=== PATIENT | female | born 1995 | race African-American/Black ===

== ENCOUNTER 2017-03-19 20:17 | Emergency (ER) | payer OTHER ==
[~2017-03-19] VITALS: Ht 160 cm; Wt 69.0 kg
[~2017-03-19 20:17] MED LIST: FLUO-1 PO; RISP.5 PO; Z.0.NO CURRENT MEDS
[2017-03-19 20:19] VITALS: BP 120/58; PULSE 97; RESP 16; TEMP 100; O2SAT 99
--- NOTE | 2017-03-19 20:52 | PD ---
HPI Chief Complaint: GI Complaint Time Seen by Provider: 20:31 Travel History International Travel<30 days: No Contact w/Intl Traveler<30days: No Traveled to known affect area: No History of Present Illness HPI The patient was seen and examined in the presence of the nurse. This patient complains of nausea vomiting diarrhea and diffuse muscle aches and low-grade fever. Duration 2 days. Severity of symptoms is moderate. No alleviating factors. No abdominal pain or shortness of breath. Has 2 close contacts with similar symptoms PFSH Past Medical History Medical History: Denies Significant Hx Diminished Hearing: No Immunizations Current: Yes ?: Unknown LMP: 02/08/17 Past Surgical History Surgical History: No Previous Surgery Social History Alcohol Use: No Tobacco Use: No Substance Use: Yes (MARIJUANA ) Allergies-Medications (Allergen,Severity, Reaction): Coded Allergies: No Known Allergies (Verified , 06/21/12) Reported Meds & Prescriptions Reported Meds & Active Scripts Active No Active Prescriptions or Reported Medications Review of Systems General / Constitutional: Positive: Fever Eyes: No: Visual changes HENT: No: Headaches Cardiovascular: No: Chest Pain or Discomfort Respiratory: No: Shortness of Breath Gastrointestinal: Positive: Nausea, Vomiting, Diarrhea, No: Abdominal Pain Genitourinary: No: Dysuria Musculoskeletal: Positive: Myalgias, No: Pain Skin: No Rash Neurologic: No: Weakness Psychiatric: No: Depression Endocrine: No: Polydipsia Hematologic/Lymphatic: No: Easy Bruising Physical Exam Narrative GENERAL: Well-nourished, well-developed patient in no apparent distress. SKIN: Focused skin assessment reveals no rash and nodules. Skin is Warm and dry. HEAD: Atraumatic. Normocephalic. EYES: Pupils equal and round. No scleral icterus. No injection or drainage. ENT: No nasal bleeding or discharge. Mucous membranes pink and moist. NECK: Trachea midline. No JVD. CARDIOVASCULAR: Regular rate and rhythm. No murmur appreciated. RESPIRATORY: No accessory muscle use. Clear to auscultation. Breath sounds equal bilaterally. GASTROINTESTINAL: Abdomen soft, non-tender, nondistended. Hepatic and splenic margins not palpable. MUSCULOSKELETAL: No obvious deformities. No clubbing. No cyanosis. No edema. NEUROLOGICAL: Awake and alert. No obvious cranial nerve deficits. Motor grossly within normal limits. Normal speech. PSYCHIATRIC: Appropriate mood and affect; insight and judgment normal. Data Data Last Documented VS Vital Signs Date Time Temp Pulse Resp B/P Pulse Ox O2 Delivery O2 Flow Rate FiO2 03/19/17 20:19 100.0 97 16 120/58 99 Room Air Orders Iv Access Insert/Monitor (03/19/17 20:48) Complete Blood Count With Diff (03/19/17 20:48) Basic Metabolic Panel (Bmp) (03/19/17 20:48) Ondansetron Inj (Zofran Inj) (03/19/17 21:00) Sodium Chlor 0.9% 1000 Ml Inj (Ns 1000 M (03/19/17 21:00) Labs Laboratory Tests Test 03/19/17 20:56 White Blood Count 8.3 TH/MM3 Red Blood Count 5.38 MIL/MM3 Hemoglobin 15.0 GM/DL Hematocrit 45.0 % Mean Corpuscular Volume 83.6 FL Mean Corpuscular Hemoglobin 27.9 PG Mean Corpuscular Hemoglobin 33.4 % Concent Red Cell Distribution Width 12.6 % Platelet Count 268 TH/MM3 Mean Platelet Volume 7.8 FL Neutrophils (%) (Auto) 90.5 % Lymphocytes (%) (Auto) 5.8 % Monocytes (%) (Auto) 3.4 % Eosinophils (%) (Auto) 0.0 % Basophils (%) (Auto) 0.3 % Neutrophils # (Auto) 7.5 TH/MM3 Lymphocytes # (Auto) 0.5 TH/MM3 Monocytes # (Auto) 0.3 TH/MM3 Eosinophils # (Auto) 0.0 TH/MM3 Basophils # (Auto) 0.0 TH/MM3 CBC Comment DIFF FINAL Differential Comment Sodium Level 136 MEQ/L Potassium Level 3.9 MEQ/L Chloride Level 104 MEQ/L Carbon Dioxide Level 24.9 MEQ/L Anion Gap 7 MEQ/L Blood Urea Nitrogen 14 MG/DL Creatinine 0.92 MG/DL Estimat Glomerular Filtration 94 ML/MIN Rate Random Glucose 82 MG/DL Calcium Level 9.1 MG/DL [facility] Medical Decision Making Medical Screen Exam Complete: Yes Emergency Medical Condition: Yes Medical Record Reviewed: Yes Differential Diagnosis Flu syndrome, gastroenteritis, colitis Narrative Course I have reviewed the patient's electronic medical record. IV placed I gave her liter normal saline IV and IV Zofran CBC is normal Metabolic profile is normal Patient feels improved on recheck. I wrote her Zofran. I believe she has viral gastroenteritis and will improve soon Diagnosis Primary Impression: Viral gastroenteritis Additional Instructions: The patient was advised to follow up with their physician and return if they worsen. Med/Other Pt SpecificInfo: Prescription(s) given Scripts Ondansetron (Zofran)4 Mg Tab4 Mg PO Q6HR PRN (NAUSEA OR VOMITING) #12 TAB Ref 0 Prov:Antonio Sharp MD 03/19/17 Disposition: 01 DISCHARGE HOME Condition: Stable Antonio Sharp MD Mar 19, 2017 20:52
[2017-03-19] MEDS ORDERED: ONDANSETRON HCL 4 MG/2 ML VIAL IV ONE (21:00)
[2017-03-19] MEDS ORDERED: SODIUM CHLOR 0.9% 1000 ML INJ 1,000 ML IV ONE (21:00)
[2017-03-19 21:24] LABS: AUTOMATED NEUTROPHIL # 7.5 TH/MM3 (1.8-7.7); BASOPHIL % 0.3 % (0.0-2.0); HEMO FLAGS DIFF FINAL; LYMPH % 5.8 % (9.0-44.0); LYMPHOCYTE # 0.5 TH/MM3 (1.0-4.8); MEAN CELL VOLUME 83.6 FL (80.0-100.0); MEAN CORPUSCULAR HEMOGLOBIN 27.9 PG (27.0-34.0); MEAN CORPUSCULAR HGB CONC 33.4 % (32.0-36.0); MONO % 3.4 % (0.0-8.0); NEUT % 90.5 % (16.0-70.0); PLATELET COUNT 268 TH/MM3 (150-450); RED BLOOD COUNT 5.38 MIL/MM3 (4.00-5.30); RED CELL DISTRIBUTION WIDTH 12.6 % (11.6-17.2); WHITE BLOOD COUNT 8.3 TH/MM3 (4.0-11.0)
[2017-03-19 21:37] LABS: BICARBONATE 24.9 MEQ/L (21.0-32.0); POTASSIUM 3.9 MEQ/L (3.5-5.1)
[2017-03-19] MEDS ORDERED: ZOFR4TAB PO (22:13)
== END 2017-03-19 22:29 | disposition home or self-care (01) ==
LOC: NEPD 20:17
DX: A08.4 Viral intestinal infection, unspecified (principal); F12.90 Cannabis use, unspecified, uncomplicated
CPT/HCPCS: 80048; 85025; 96361; 96374; 99284; J2405; J7030